=== PATIENT | female | born 1955 | race Hispanic/Latino ===

== ENCOUNTER 2018-03-04 12:50 | Inpatient (IN) | payer OTHER ==
[2018-03-04 13:37] LABS: Absolute Lymphocytes (CBC) 3.7 K/uL (0.7-4.9); Absolute Neutrophil 4.5 K/uL (1.8-8.0); Basophils % 0.4 % (0-1.3); Eosinophils % 2.7 % (0-4.4); Hematocrit 37.1 % (36.0-45.0); MCH 29.2 pg (27.0-35.0); MCV 87.2 fL (80-100); MPV 9.5 fL (7.6-11.3); Monocytes % 10.2 % (3.3-12.3); RBC Red Blood Cell Count 4.25 M/uL (3.86-4.86)
[2018-03-04] MEDS ORDERED: MAGNE/ALUM HYDROXD 30 ML UCUP ONE (13:40)
[2018-03-04] MEDS ORDERED: ASPIRIN 81 MG CHEWABLE TABLET ONE (13:40)
[2018-03-04] MEDS ORDERED: PANTOPRAZOLE 40 MG INJ ONE (13:40)
[2018-03-04] MEDS ORDERED: NITROGLYCERIN 0.4 MG/TAB SL ONE (13:41)
[2018-03-04] MEDS ORDERED: LIDOCAINE VISCOUS 2% SOLN 15 ML UDC ONE (13:41)
[2018-03-04 13:42] LABS: Protime INR 0.93
[2018-03-04 13:42] LABS: Urine Blood 2+ (NEG); Urine Glucose NEGATIVE (NEG); Urine Protein NEGATIVE (NEG); Urine pH 5.5 (5.0-7.0)
--- NOTE | 2018-03-04 13:54 | RAD REPORT ---
EXAM DESCRIPTION: RAD - Chest Single View - 03/04/2018 1:49 pm CLINICAL HISTORY: CHEST PAIN Chest pain. COMPARISON: No comparisons FINDINGS: Portable technique limits examination quality. The lungs are grossly clear. The heart is normal in size. No displaced fractures.Mild dextroscoliosis of the thoracic spine. IMPRESSION: No acute intrathoracic process suspected.
[2018-03-04 13:55] LABS: ALT/SGPT 24 U/L (12-78); AST/SGOT 25 U/L (15-37); Albumin 4.2 g/dL (3.4-5.0); Alkaline Phosphatase 70 U/L (45-117); BUN Blood Urea Nitrogen 29 mg/dL (7-18); Bicarbonate 27 mmol/L (21-32); Bilirubin Direct < 0.1 mg/dL (0-0.2); Bilirubin Total 0.3 mg/dL (0.2-1.0); Glucose Level 147 mg/dL (74-106); Lipase 175 U/L (73-393); Magnesium 2.5 mg/dL (1.8-2.4); NT PRO-BNP 203 pg/mL (<125); Protein, Total 7.8 g/dL (6.4-8.2); Sodium Level 142 mmol/L (136-145); Troponin (Emerg Dept Use Only) < 0.02 ng/mL (0.0-0.045)
--- NOTE | 2018-03-04 14:29 | EDPHYS ---
Physician Documentation [facility] Name: Riana Mcdowell Age: 62 yrs Sex: Female : 1955 Arrival Date: 03/04/2018 Time: 12:52 Bed 26 Private MD: ED Physician Ricardo Hayden HPI: 03/04 13:16 This 62 yrs old Female presents to ER via Ambulatory with complaints of Chest cp Pain. 13:16 The patient or guardian reports chest pain that is located primarily in the anterior cp chest wall. 13:16 Onset: 1 hour(s) ago. The pain does not radiate. Associated signs and symptoms: cp Pertinent negatives: abdominal pain, cough, diaphoresis, dizziness, lower extremity pain, lower extremity swelling, palpitations, shortness of breath, syncope. The chest pain is described as burning. Duration: The patient or guardian reports a single episode, that is still ongoing, but improving. Historical: - Allergies: 13:15 No Known Allergies; tl3 - Home Meds: 13:15 Simvastatin Oral once daily for Hyperlipidemia [Active]; Metoprolol Tartrate Oral for tl3 Hypertension [Active]; - PMHx: 13:15 Myocardial infarction; Hyperlipidemia; tl3 - Immunization history:: Adult Immunizations up to date. - Social history:: Smoking status: Patient/guardian denies using tobacco, never smoked. - Ebola Screening: : No symptoms or risks identified at this time. ROS: 13:19 Constitutional: Negative for body aches, chills, fever, poor PO intake. cp 13:19 Eyes: Negative for injury, pain, redness, and discharge. cp 13:19 ENT: Negative for drainage from ear(s), ear pain, sore throat, difficulty swallowing, difficulty handling secretions. 13:19 Cardiovascular: Positive for chest pain, Negative for edema, palpitations. 13:19 Respiratory: Negative for cough, shortness of breath, wheezing. 13:19 Abdomen/GI: Negative for abdominal pain, vomiting, diarrhea, constipation. 13:19 Back: Negative for pain at rest, pain with movement, radiated pain. 13:19 : Negative for urinary symptoms, flank pain. 13:19 Skin: Negative for cellulitis, rash. 13:19 Neuro: Negative for altered mental status, dizziness, headache, syncope, near syncope, weakness. 13:19 All other systems are negative. Exam: 13:20 ECG was reviewed by the Attending Physician. cp 13:25 Constitutional: The patient appears in no acute distress, alert, awake, cp non-diaphoretic, non-toxic, well developed, well nourished. 13:25 Head/Face: Normocephalic, atraumatic. Eyes: Pupils equal round and reactive to light, cp extra-ocular motions intact. Lids and lashes normal. Conjunctiva and sclera are non-icteric and not injected. Cornea within normal limits. Periorbital areas with no swelling, redness, or edema. ENT: Nares patent. No nasal discharge, no septal abnormalities noted. Tympanic membranes are normal and external auditory canals are clear. Oropharynx with no redness, swelling, or masses, exudates, or evidence of obstruction, uvula midline. Mucous membranes moist. Neck: Trachea midline, no thyromegaly or masses palpated, and no cervical lymphadenopathy. Supple, full range of motion without nuchal rigidity, or vertebral point tenderness. No Meningismus. Chest/axilla: Normal chest wall appearance and motion. Nontender with no deformity. No lesions are appreciated. Cardiovascular: Regular rate and rhythm with a normal S1 and S2. No gallops, murmurs, or rubs. Normal PMI, no JVD. No pulse deficits. Respiratory: Lungs have equal breath sounds bilaterally, clear to auscultation and percussion. No rales, rhonchi or wheezes noted. No increased work of breathing, no retractions or nasal flaring. Abdomen/GI: Soft, non-tender, with normal bowel sounds. No distension or tympany. No guarding or rebound. No evidence of tenderness throughout. Back: No spinal tenderness. No costovertebral tenderness. Full range of motion. Skin: Warm, dry with normal turgor. Normal color with no rashes, no lesions, and no evidence of cellulitis. MS/ Extremity: Pulses equal, no cyanosis. Neurovascular intact. Full, normal range of motion. 13:25 Neuro: Orientation: to person, place \T\ time. Mentation: is normal, Cerebellar function: is grossly normal, Motor: moves all fours, strength is normal, Sensation: no obvious gross deficits. Vital Signs: 13:25 BP 135 / 61; Pulse 60; Resp 18; Temp 98.6(O); Pulse Ox 100% on R/A; tl3 18:57 BP 124 / 54; Pulse 65; Resp 16; Pulse Ox 100% on R/A; rv MDM: 13:07 Patient medically screened. cp 14:23 Data reviewed: vital signs, nurses notes, lab test result(s), EKG, radiologic studies, cp plain films, and as a result, I will admit patient. Test interpretation: by ED physician or midlevel provider: ECG, plain radiologic studies. Physician consultation: Marie Rivera MD was called at 14:20, was contacted at 14:20, regarding admission, to the telemetry unit. patient's condition. 03/04 13:21 Order name: Basic Metabolic Panel; Complete Time: 14:08 03/04 14:08 Interpretation: Normal except: K 3.0; CL 108; GLUC 147; BUN 29; GFR 56; CA 8.4. 03/04 13:21 Order name: CBC with Diff; Complete Time: 14:08 cp 03/04 13:21 Order name: LFT's; Complete Time: 14:08 cp 03/04 13:21 Order name: Magnesium; Complete Time: 14:08 cp 03/04 13:21 Order name: NT PRO-BNP; Complete Time: 14:08 cp 03/04 13:21 Order name: PT-INR; Complete Time: 14:08 cp 03/04 13:21 Order name: Troponin (emerg Dept Use Only); Complete Time: 14:08 cp 03/04 13:21 Order name: XRAY Chest (1 view); Complete Time: 14:08 cp 03/04 13:21 Order name: Lipase; Complete Time: 14:08 cp 03/04 13:29 Order name: Urine Dipstick--Ancillary (enter results); Complete Time: 14:08 eb 03/04 13:21 Order name: EKG; Complete Time: 13:22 cp 03/04 13:21 Order name: Cardiac monitoring; Complete Time: 13:28 cp 03/04 13:21 Order name: EKG - Nurse/Tech; Complete Time: 13:28 cp 03/04 13:21 Order name: IV Saline Lock; Complete Time: 13:28 cp 03/04 13:21 Order name: Labs collected and sent; Complete Time: 13:41 cp 03/04 13:21 Order name: O2 Per Protocol; Complete Time: 13:41 cp 03/04 13:21 Order name: O2 Sat Monitoring; Complete Time: 13:41 cp EC:20 Rate is 58 beats/min. Rhythm is regular. AR interval is normal. QRS interval is normal. cp QT interval is normal. T waves are Inverted in lead V2. Interpreted by me. Reviewed by me. Administered Medications: 13:40 Drug: ProTONIX 40 mg Route: IVP; Infused Over: 2 mins; Site: right antecubital; tl3 16:22 Follow up: Response: No adverse reaction tl3 13:40 Drug: GI Cocktail without - (Maalox Suspension 30 ml, Lidocaine Liquid 2 % 15 tl3 ml) Route: PO; 15:19 Follow up: Response: No adverse reaction tl3 13:40 Drug: Nitroglycerin 0.4 mg Route: Sublingual; tl3 15:19 Follow up: Response: No adverse reaction tl3 15:19 Follow up: Response: No adverse reaction tl3 13:41 Drug: Aspirin Chewable Tablet 324 mg Route: PO; tl3 15:19 Follow up: Response: No adverse reaction tl3 16:21 Drug: Potassium Effervescent Tablet 50 mEq Route: PO; tl3 16:22 Follow up: Response: No adverse reaction tl3 16:22 Drug: Potassium Chloride 20 mEq Route: IV; Rate: calculated rate; Site: right tl3 antecubital; Delivery: Primary tubing; Disposition: 03/05 08:24 Co-signature as Attending Physician, Ricardo Hayden MD I agree with the assessment and griselda plan of care. Disposition: 03/04/18 14:29 Hospitalization ordered by Marie Rivera for Observation. Preliminary diagnosis is Chest pain, unspecified. - Bed requested for Telemetry/MedSurg (observation). - Status is Observation. rv - Condition is Stable. - Problem is new. - Symptoms have improved. UTI on Admission? No Signatures: Dispatcher [employer] Savita Cardenas RN RN dw Anderson, Corey, MD MD cha Williams, Irene, RN RN iw Page, Corey, PA PA cp Lowrey, Tammy, RN RN tl3 Chris Zelaya RN RN rv Corrections: (The following items were deleted from the chart) 03/04 14:08 14:08 Normal except: K 3.0; CL 108; GLUC 147; BUN 29; GFR 56. cp cp 15:50 03/03 13:19 Constitutional: Negative for body aches, chills, fever, poor PO intake, cp cp 03/04 15:50 03/03 13:19 Eyes: Negative for injury, pain, redness, and discharge, cp cp 03/04 15:50 03/03 13:19 ENT: Negative for drainage from ear(s), ear pain, sore throat, difficulty cp swallowing, difficulty handling secretions, cp 03/04 15:50 03/03 13:19 Cardiovascular: Positive for chest pain, Negative for edema, palpitations, cp cp 03/04 15:50 03/03 13:19 Respiratory: Negative for cough, shortness of breath, wheezing, cp cp 03/04 15:50 03/03 13:19 Abdomen/GI: Negative for abdominal pain, vomiting, diarrhea, constipation, cp black/tarry stool, rectal bleeding, cp 03/04 15:50 03/03 13:19 Back: Negative for pain at rest, pain with movement, cp cp 03/04 15:50 03/03 13:19 : Negative for urinary symptoms, flank pain, cp cp 03/04 15:50 03/03 13:19 Skin: Negative for cellulitis, rash, cp cp 03/04 15:50 03/03 13:19 Neuro: Negative for altered mental status, headache, numbness, syncope, cp near syncope, weakness, cp 03/04 15:50 03/03 13:19 All other systems are negative, cp cp 03/04 16:49 14:29 Hospitalization Ordered by Marie Rivera MD for Observation. Preliminary diagnosis iw is Chest pain, unspecified. Bed requested for Telemetry/MedSurg (observation). Status is Observation. Condition is Stable. Problem is new. Symptoms have improved. UTI on Admission? No. cp 17:28 16:49 03/04/2018 14:29 Hospitalization Ordered by Marie Rivera MD for Observation. dw Preliminary diagnosis is Chest pain, unspecified. Bed requested for [email or web address] ER HOLD. Status is Observation. Condition is Stable. Problem is new. Symptoms have improved. UTI on Admission? No. iw 17:28 17:28 03/04/2018 14:29 Hospitalization Ordered by Marie Rivera MD for Observation. dw Preliminary diagnosis is Chest pain, unspecified. Bed requested for Telemetry/MedSurg (observation). Status is Observation. Condition is Stable. Problem is new. Symptoms have improved. UTI on Admission? No. dw 18:58 17:28 03/04/2018 14:29 Hospitalization Ordered by Marie Rivera MD for Observation. rv Preliminary diagnosis is Chest pain, unspecified. Bed requested for Telemetry/MedSurg (observation). Status is Observation. Condition is Stable. Problem is new. Symptoms have improved. UTI on Admission? No. dw
--- NOTE | 2018-03-04 14:29 | ER ---
Nurse's Notes [facility] Name: Riana Mcdowell Age: 62 yrs Sex: Female : 1955 Arrival Date: 03/04/2018 Time: 12:52 Bed 26 Private MD: Diagnosis: Chest pain, unspecified Presentation: 03/04 13:11 Presenting complaint: Patient states: pt reports chest pain that spreads across chest tl3 and burning into left arm, pain started after getting into an argument with her brother about an hour and a half ago. At that time pain was at 10/10 but now is 7/10. Transition of care: patient was not received from another setting of care. Onset of symptoms was March 04, 2018 at 11:30. Risk Assessment: Do you want to hurt yourself or someone else? Patient reports no desire to harm self or others. Initial Sepsis Screen: Does the patient meet any 2 criteria? No. Patient's initial sepsis screen is negative. Does the patient have a suspected source of infection? No. Patient's initial sepsis screen is negative. Care prior to arrival: None. 13:11 Method Of Arrival: Ambulatory tl3 13:11 Acuity: MAGALIS 3 tl3 Triage Assessment: 13:15 General: Appears uncomfortable, well groomed, well developed, well nourished, Behavior tl3 is calm, cooperative, appropriate for age. Pain: Complains of pain in chest, left arm. EENT: No signs and/or symptoms were reported regarding the EENT system. Neuro: Cardiovascular: Reports chest pain, shortness of breath, since 1130 am Patient's skin is warm and dry. Rhythm is regular. Respiratory: Airway is patent Respiratory effort is even, unlabored, Respiratory pattern is regular, symmetrical. GI: No signs and/or symptoms were reported involving the gastrointestinal system. : No signs and/or symptoms were reported regarding the genitourinary system. Derm: No signs and/or symptoms reported regarding the dermatologic system. Musculoskeletal: No signs and/or symptoms reported regarding the musculoskeletal system. Historical: - Allergies: 13:15 No Known Allergies; tl3 - Home Meds: 13:15 Simvastatin Oral once daily for Hyperlipidemia [Active]; Metoprolol Tartrate Oral for tl3 Hypertension [Active]; - PMHx: 13:15 Myocardial infarction; Hyperlipidemia; tl3 - Immunization history:: Adult Immunizations up to date. - Social history:: Smoking status: Patient/guardian denies using tobacco, never smoked. - Ebola Screening: : No symptoms or risks identified at this time. Screenin:26 Abuse screen: Denies threats or abuse. Nutritional screening: No deficits noted. tl3 Tuberculosis screening: No symptoms or risk factors identified. Fall Risk None identified. Assessment: 13:26 Reassessment: No changes from previously documented assessment. tl3 Vital Signs: 13:25 BP 135 / 61; Pulse 60; Resp 18; Temp 98.6(O); Pulse Ox 100% on R/A; tl3 18:57 BP 124 / 54; Pulse 65; Resp 16; Pulse Ox 100% on R/A; rv ED Course: 12:52 Patient arrived in ED. mr 13:07 Ricardo Abraham PA is PHCP. cp 13:07 Ricardo Hayden MD is Attending Physician. cp 13:11 Jackelyn Pastor, VIVIANA is Primary Nurse. tl3 13:13 Triage completed. tl3 13:25 Arm band placed on left wrist. tl3 13:26 Patient has correct armband on for positive identification. gambling monitor on. Pulse tl3 ox on. NIBP on. Warm blanket given. 13:26 No provider procedures requiring assistance completed. Initial lab(s) drawn, by ED tl3 staff, sent to lab. EKG done. Inserted saline lock: 20 gauge in right antecubital area, using aseptic technique. Blood collected. Patient maintains SpO2 saturation greater than 95% on room air. 13:49 XRAY Chest (1 view) In Process Unspecified. EDMS 14:27 Marie Rivera MD is Hospitalizing Provider. cp Administered Medications: 13:40 Drug: ProTONIX 40 mg Route: IVP; Infused Over: 2 mins; Site: right antecubital; tl3 16:22 Follow up: Response: No adverse reaction tl3 13:40 Drug: GI Cocktail without - (Maalox Suspension 30 ml, Lidocaine Liquid 2 % 15 tl3 ml) Route: PO; 15:19 Follow up: Response: No adverse reaction tl3 13:40 Drug: Nitroglycerin 0.4 mg Route: Sublingual; tl3 15:19 Follow up: Response: No adverse reaction tl3 15:19 Follow up: Response: No adverse reaction tl3 13:41 Drug: Aspirin Chewable Tablet 324 mg Route: PO; tl3 15:19 Follow up: Response: No adverse reaction tl3 16:21 Drug: Potassium Effervescent Tablet 50 mEq Route: PO; tl3 16:22 Follow up: Response: No adverse reaction tl3 16:22 Drug: Potassium Chloride 20 mEq Route: IV; Rate: calculated rate; Site: right tl3 antecubital; Delivery: Primary tubing; Outcome: 14:29 Decision to Hospitalize by Provider. cp 18:57 Admitted to Tele accompanied by tech, via wheelchair, room 422, with chart. rv 18:57 Condition: good 18:58 Patient left the ED. rv Signatures: Dispatcher [employer] EDMS Samira Herron Corey, PA PA cp Lowrey, Tammy, RN RN tl3 Chris Zelaya RN RN rv
[2018-03-04] MEDS ORDERED: KCL 20 MEQ/100 mL IVPB 20 MEQ/100 ML BAG IV ONE (16:14)
[2018-03-04] MEDS ORDERED: NA CHLORIDE 0.9% 1,000 ML ONE (16:14)
[2018-03-04] MEDS ORDERED: POTASSIUM 25 MEQ EFFERV TAB ONE (16:14)
[2018-03-04] MEDS ORDERED: MORPHINE 2 MG/ML SYR IV PRN (16:44)
[2018-03-04] MEDS ORDERED: NITROGLYCERIN 0.4 MG/TAB SL PRN (16:44)
[2018-03-04] MEDS ORDERED: ONDANSETRON 4 MG/2 ML VIAL IV PRN (16:44)
[2018-03-04] MEDS ORDERED: ACETAMINOPHEN 500 MG TAB PO PRN (16:44)
[2018-03-04] MEDS ORDERED: POTASSIUM 25 MEQ EFFERV TAB PO ONE (16:46)
[2018-03-04] MEDS ORDERED: ENOXAPARIN 60 MG/0.6 ML SQ ONE (17:20)
[2018-03-04] MEDS ORDERED: ENOXAPARIN 40 MG/0.4 ML SQ ONE (17:24)
[2018-03-04] MEDS ORDERED: ENOXAPARIN 40 MG/0.4 ML SQ SCH (18:00)
[2018-03-04] MEDS ORDERED: INFLUENZA VACCINE (for 3y+) 0.5 ML DOSE IMVAC ONE (18:00)
--- NOTE | 2018-03-04 18:30 | P.HP ---
Certification for Inpatient Patient admitted to: Inpatient With expected LOS: >2 Midnights Practitioner: I am a practitioner with admitting privileges, knowledge of patient current condition, hospital course, and medical plan of care. Services: Services provided to patient in accordance with Admission requirements found in Title 42 Section 412.3 of the Code of Federal Regulations Patient History Date of Service: 03/05/18 History of Present Illness: This is a 62-year-old female with past medical history hypertension, hyperlipidemia admitted for chest pain. Chest pain started around noon on the day of admission, it was intermittent, located on the left side. She described it as a pressor like/burning type of pain along with a heavy on. She states that she had a similar episode once back in 2011, left heart cath was done at that time that required no stent placement. At the time of my exam, she was hemodynamically stable, pain had resolved and she was alert and oriented x3. Allergies No Known Allergies Allergy (Verified 03/04/18 16:26) Home Medications: Metoprolol Tartrate 25 mg PO DAILY 03/04/18 Simvastatin 20 mg PO DAILY 03/04/18 - Past Medical/Surgical History Has patient received pneumonia vaccine in the past: No Diabetic: No -: MS -: Hyperlipidemia -: Hypertension -: Tubal Ligation - Social History Smoking Status: Never smoker Alcohol use: No CD- Drugs: No Caffeine use: No Place of Residence: Home Review of Systems General: Unremarkable Eyes: Unremarkable ENT: Unremarkable Respiratory: Unremarkable Cardiovascular: Chest Pain, As per HPI Gastrointestinal: Unremarkable Musculoskeletal: As per HPI Integumentary: Unremarkable Neurological: Unremarkable Physical Examination - Physical Exam General: Alert, In no apparent distress, Oriented x3 HEENT: Atraumatic, PERRLA, Mucous membr. moist/pink, EOMI, Sclerae nonicteric Neck: Supple, 2+ carotid pulse no bruit, No LAD, Without JVD or thyroid abnormality Respiratory: Clear to auscultation bilaterally, Normal air movement Cardiovascular: Regular rate/rhythm, Normal S1 S2 Gastrointestinal: Normal bowel sounds, No tenderness Musculoskeletal: No tenderness Integumentary: No rashes Neurological: Normal gait, Normal speech, Normal strength at 5/5 x4 extr, Normal tone, Normal affect Lymphatics: No axilla or inguinal lymphadenopathy - Studies Laboratory Data (last 24 hrs) 03/04/18 13:25: PT 11.0, INR 0.93 03/04/18 13:25: WBC 9.4, Hgb 12.4, Hct 37.1, Plt Count 277 03/04/18 13:25: Sodium 142, Potassium 3.0 L, BUN 29 H, Creatinine 1.00, Glucose 147 H, Magnesium 2.5 H, Total Bilirubin 0.3, AST 25, ALT 24, Alkaline Phosphatase 70, Lipase 175 Assessment and Plan - Plan This is a 62-year-old female with: Chest pain, rule outs acute myocardial infarction. Hypertension Hyperlipidemia 1. Serial troponins Q8 and EKG. Initial troponin negative 2. Cardiology consultation. 3. Anti-platelet therapy, anti coagulation, beta-rock, statin, and O2 as needed 5. IV morphine for pain 6. GI AND DVT prophylaxis - Advance Directives Does patient have a Living Will: No Does patient have a Durable POA for Healthcare: No Physician Review: Patient Assessed, Agree with Above Assessment and Plan Time Spent Managing Pts Care (In Minutes): 45
[2018-03-04] MEDS ORDERED: ATORVASTATIN 40 MG TAB PO SCH (21:00)
[2018-03-04 22:19] LABS: Troponin I 0.76 ng/mL (0.0-0.045)
[2018-03-05 05:08] LABS: Absolute Lymphocytes (CBC) 2.5 K/uL (0.7-4.9); Absolute Monocytes 0.7 K/uL (0.1-1.3); Absolute Neutrophil 2.9 K/uL (1.8-8.0); Basophils % 0.3 % (0-1.3); Eosinophils % 3.3 % (0-4.4); Lymphocytes % 38.8 % (15.3-44.8); MCH 29.5 pg (27.0-35.0); MCV 87.4 fL (80-100); MPV 9.2 fL (7.6-11.3); Monocytes % 11.8 % (3.3-12.3); RBC Red Blood Cell Count 3.77 M/uL (3.86-4.86)
[2018-03-05 05:40] LABS: ALT/SGPT 20 U/L (12-78); AST/SGOT 22 U/L (15-37); Albumin 3.3 g/dL (3.4-5.0); Alkaline Phosphatase 54 U/L (45-117); BUN Blood Urea Nitrogen 21 mg/dL (7-18); Bicarbonate 28 mmol/L (21-32); Bilirubin Total 0.4 mg/dL (0.2-1.0); Glucose Level 95 mg/dL (74-106); HDL Cholesterol 48 mg/dL (40-60); LDL Cholesterol, Calculated 39 (<130); Potassium 4.4 mmol/L (3.5-5.1); Protein, Total 6.2 g/dL (6.4-8.2); Sodium Level 146 mmol/L (136-145)
[2018-03-05 05:41] LABS: Troponin I 0.92 ng/mL (0.0-0.045)
[2018-03-05] MEDS ORDERED: ENOXAPARIN 80 MG/0.8 ML SQ ONE (06:13)
--- NOTE | 2018-03-05 07:36 | EKG ---
Test Date: 2018-03-04 Test Time: 14:32:08 Ticket Attendant: JEREMIAH MEASUREMENT RESULTS: Intervals: Rate: 68 DC: 154 QRSD: 80 QT: 404 QTc: 429 [place]: P: 37 DC: 154 QRS: 0 T: 44 INTERPRETIVE STATEMENTS: Normal sinus rhythm Normal ECG Compared to ECG 03/04/2018 13:11:34 Sinus bradycardia no longer present ST (T wave) deviation no longer present Electronically Signed On 03-05-18 07:35:34 DIRECTOR CENTER by Babar Christie
--- NOTE | 2018-03-05 07:37 | EKG ---
Test Date: 2018-03-04 Test Time: 13:11:34 [employer]ment [employer] Lacquer Mixer: JEREMIAH MEASUREMENT RESULTS: Intervals: Rate: 58 GA: 174 QRSD: 90 QT: 442 QTc: 433 [place]: P: 38 GA: 174 QRS: 10 T: 46 INTERPRETIVE STATEMENTS: Sinus bradycardia Otherwise normal ECG No previous ECG available for comparison Electronically Signed On 03-05-18 07:36:42 DELIVERY REPRESENTATIVE by Babar Christie
[2018-03-05] MEDS: METOPROLOL TAR 25 MG TAB PO SCH (09:35)
[2018-03-05] MEDS: NACHLORIDE 0.45% 1,000 ML IV SCH ×2 (09:37→21:06)
--- NOTE | 2018-03-05 09:48 | P.PN ---
Date of Service: 03/05/18 Called re: elevated troponin; had chest pain on arrival. But the chest pain is resolved. Will go ahead and anticoagulate patient. Consult Cardiology. Echocardiogram. Spoke with family regarding condition. Spoke with them at length. No antiplatelet therapy or anticoagulation. Will order testing as above.
[2018-03-05] MEDS ORDERED: REGADENOSON 0.4 MG/5 ML SYR IV ONE (09:55)
--- NOTE | 2018-03-05 13:18 | CON ---
CARDIOLOGY CONSULT History Of Present Illness: Mrs. Mcdowell is 62. She came to the hospital because of chest pain. T he chest pain was in central chest. There was nausea, vomiting, sweating, aching in the shoulders an d arms, lasted about 30 minutes, resolved by the time she got to the emergency room. Her initial tro ponin in the emergency room was 0.02. Subsequent troponins are elevated well out of the normal range . The patient's electrocardiogram shows sinus bradycardia, otherwise it is normal. The patient has never had myocardial infarction. In 2001, she had a stroke. There was no revascularization. Since 2001 she has taken simvastatin, metoprolol, and aspirin. She has never used tobacco. No illegal deven gs, rare alcohol. Physical Examination: General: She appears to be her stated age. Vital Signs: She is 5 feet 4 inches, 156 pounds. Blood pressure 122/54, pulse 53. HEENT: Normal. Lungs: Clear. Carotids: No bruit. Heart: Within normal limits. Abdomen: Soft. Extremities: Normal. Impression: Mrs. Mcdowell needs to have a cardiac cath. She received Lovenox at 6 a.m. this morning , so I do not want to do an elective cardiac cath with a full-dose Lovenox on board. We have the cho ice of either doing it very late this afternoon or tomorrow morning since she is not having chest pain. It will be rescheduled for tomorrow with Dr. Quintanilla. SHAZIA/GEOVANNY Voice ID: [id number] Report ID: [id number]
--- NOTE | 2018-03-05 18:38 | P.PN ---
Subjective Date of Service: 03/05/18 Subjective: No new changes, No C/O voiced Patient seen and examined at bedside. No family at bedside. Case discussed with nursing staff. Denies any chest pain at this time. Denies any nausea, vomiting, excessive sweating, arm pain, dizziness, headache or lightheadedness. Review of Systems As noted Physical Examination - Vital Signs Temperature: 98.2 F Blood Pressure: 112/56 Pulse: 59 Respirations: 16 Pulse Ox (%): 97 - Physical Exam General: Alert, In no apparent distress, Oriented x3 HEENT: Atraumatic, PERRLA, EOMI Neck: Supple, JVD not distended Respiratory: Clear to auscultation bilaterally, Normal air movement Cardiovascular: Regular rate/rhythm, Normal S1 S2 Gastrointestinal: Normal bowel sounds, No tenderness Musculoskeletal: No tenderness Integumentary: No rashes Neurological: Normal speech, Normal tone, Normal affect Lymphatics: No axilla or inguinal lymphadenopathy - Studies Laboratory Data (last 24 hrs) 03/05/18 04:32: Sodium 146 H, Potassium 4.4, BUN 21 H, Creatinine 0.60, Glucose 95, Total Bilirubin 0.4, AST 22, ALT 20, Alkaline Phosphatase 54, Troponin I 0.92 H*, Triglycerides 65, Cholesterol 100, HDL Cholesterol 48, Cholesterol/HDL Ratio 2.08 03/05/18 04:32: WBC 6.4 D, Hgb 11.1 L, Hct 33.0 L, Plt Count 213 D 03/04/18 21:06: Potassium 4.0, Troponin I 0.76 H* Assessment And Plan - Plan This is a 62-year-old female with: Chest pain, rule outs acute myocardial infarction. Hypertension Hyperlipidemia 1. Serial troponins Q8 and EKG. Initial troponin negative, with elevation in serial troponins. 2. Cardiology consultation. Recommendations appreciated. She is pending a heart catheterization tomorrow along with an echo. 3. Anti-platelet therapy, anti coagulation, beta-rock, statin, and O2 as needed 5. IV morphine for pain 6. GI AND DVT prophylaxis Disposition: Pending an echo and heart catheterization with Cardiology tomorrow Physician Review: Patient Assessed, Agree with Above Assessment and Plan
[2018-03-05] MEDS: ATORVASTATIN 10 MG TAB PO SCH (21:04)
[2018-03-06] MEDS: METOPROLOL TAR 25 MG TAB PO SCH (05:30)
[2018-03-06] MEDS: ASPIRIN EC 81 MG TAB PO SCH (05:31)
[2018-03-06 05:59] LABS: Absolute Lymphocytes (CBC) 2.8 K/uL (0.7-4.9); Absolute Monocytes 0.7 K/uL (0.1-1.3); Absolute Neutrophil 3.1 K/uL (1.8-8.0); Basophils % 0.5 % (0-1.3); Eosinophils % 2.6 % (0-4.4); MCH 29.3 pg (27.0-35.0); MCV 86.6 fL (80-100); MPV 9.4 fL (7.6-11.3); Monocytes % 10.2 % (3.3-12.3); RBC Red Blood Cell Count 4.28 M/uL (3.86-4.86)
[2018-03-06 06:09] LABS: Albumin 3.7 g/dL (3.4-5.0); Bilirubin Total 0.4 mg/dL (0.2-1.0); Potassium 3.6 mmol/L (3.5-5.1); Protein, Total 7.1 g/dL (6.4-8.2)
[2018-03-06] MEDS ORDERED: KCL 20 MEQ/100 mL IVPB 20 MEQ/100 ML BAG IV SCH (07:00)
[2018-03-06] MEDS: NACHLORIDE 0.45% 1,000 ML IV SCH (11:13)
--- NOTE | 2018-03-06 12:28 | ECHO ---
HEIGHT: 5 ft 4 in WEIGHT: 156 lb 0 oz DATE OF STUDY: 03/06/[address]: Arcadio Padilla MD 2-DIMENSIONAL: YES M.MODE: YES DOPPLER: YES COLOR FLOW: YES TDS: NO PORTABLE: NO DEFINITY: NO BUBBLE STUDY: NO DIAGNOSIS: ELEVATED TROPONIN CARDIAC HISTORY: CATHERIZATION: NO SURGERY: NO PROSTHETIC VALVE: NO PACEMAKER: NO MEASUREMENTS (cm) DIASTOLIC (NORMALS) SYSTOLIC (NORMALS) IVSd 1.1 (0.6-1.2) LA Diam 4.1 (1.9-4.0) LVEF 64% LVIDd 3.3 (3.5-5.7) LVIDs 2.2 (2.0-3.5) %FS 34% LVPWd 1.2 (0.6-1.2) Ao Diam 2.5 (2.0-3.7) 2 DIMENSIONAL ASSESSMENT: RIGHT ATRIUM: NORMAL LEFT ATRIUM: DILATED RIGHT VENTRICLE: NORMAL LEFT VENTRICLE: NORMAL TRICUSPID VALVE: NORMAL MITRAL VALVE: NORMAL PULMONIC VALVE: NORMAL AORTIC VALVE: NORMAL PERICARDIAL EFFUSION: NONE AORTIC ROOT: NORMAL LEFT VENTRICULAR WALL MOTION: NORMAL DOPPLER/COLOR FLOW: MILD AORTIC AND TRICUPSID REGURGITATION. COMMENTS: NORMAL LEFT VENTRICULAR SIZE AND FUNCTION. MILD AORTIC AND TRICUPSID REGURGITATION. NO WALL MOTION ABNORMALITY. TECHNOLOGIST: Higinio WALTERS
[2018-03-06] MEDS ORDERED: NA CHLORIDE 0.9% 500 ML ONE (12:44)
[2018-03-06] MEDS ORDERED: ATROPINE SULF 1 MG/10 ML SYR IV ONE (12:45)
[2018-03-06] MEDS ORDERED: MIDAZOLAM HCL 2 MG/2 ML INJ ONE (12:45)
[2018-03-06] MEDS ORDERED: LIDOCAINE 1% MPF 30 ML VIAL ONE (12:45)
[2018-03-06] MEDS ORDERED: NA CHLORIDE 0.9% 0 ML ONE (12:45)
[2018-03-06] MEDS ORDERED: FENTANYL CITR 100 MCG/2 ML ONE (12:45)
[2018-03-06] MEDS ORDERED: ACETAMINOPHEN 325 MG TABLET PO PRN (15:29)
[2018-03-06] MEDS ORDERED: NA CHLORIDE 0.9% 1,000 ML IV SCH (16:00)
[2018-03-06] MEDS ORDERED: ENOXAPARIN 40 MG/0.4 ML SQ SCH (18:00)
[2018-03-06] MEDS: ATORVASTATIN 10 MG TAB PO SCH (20:49)
--- NOTE | 2018-03-06 23:43 | PN ---
Date of Progress Note: 03/06/2018 Subjective: Patient is seen and examined. Chart reviewed and case discussed with RN. The patient is going for a heart catheterization today. Review of Systems: Negative except as above. Medications: List reviewed. Physical Examination: Vital Signs: Temperature 97.7, heart rate 54, blood pressure 112/43, respirations 18, O2 96% on room air. General: Awake, alert, oriented x3. No acute distress. Elderly female. CV: S1, S2. Regular rate and rhythm. No murmurs. Peripheral pulses present. Respiratory: Moving air well bilaterally. No wheezing or stridor. Gastrointestinal: Abdomen is soft, nontender, nondistended. Positive bowel sounds. Extremities: No clubbing, cyanosis, or edema. Neuro: Nonfocal. Skin: No rashes. Normal skin turgor. Psych: Mood is okay. Affect is full. Insight and judgment are good. Laboratory Data: Sodium 141, potassium 3.6, chloride 107, CO2 28, BUN 16, creatinine 0.8, glucose 102, calcium 8.2. Troponin 0.76, 0.92. WBC 6.7, H and H 12.5 and 37, platelets 257, with neutrophils 45%. Echocardiogram shows EF 64% , mild aortic and tricuspid regurgitation, no wall motion abnormality. Assessment And Plan: A 62-year-old female with, 1. NSTEMI. The patient has elevated cardiac enzymes. The patient is on chest pain guidelines and Lovenox therapeutic dose. Appreciate Cardiology input. The patient will have the cardiac catheterization today. 2. Essential hypertension, stable. Resume home medications as appropriate. 3. Mixed hyperlipidemia. We will continue statin. 4. Gastrointestinal and deep vein thrombosis prophylaxis addressed. 5. Hypernatremia, corrected. We will continue to monitor sodium level. Plan: Follow up with the cardiology recommendations. Likely discharge in the next 24 to 48 hours. /GEOVANNY Voice ID: [id number] Report ID: [id number] [facility]
[2018-03-07] MEDS: NACHLORIDE 0.45% 1,000 ML IV SCH (00:21)
--- NOTE | 2018-03-07 04:35 | OP ---
Surgeon: Horace Quintanilla MD Metallurgical Lab Technician: Ajay Rao. The patient was admitted to Dr. Rivera's service on 03/05/2018 with non-ST elevation myocardial infarc tion. She was seen by Dr. Christie on 03/05/2018. Today, she was scheduled for a heart catheterizatio n as an inpatient. Procedure: Left heart catheterization. Indication: Elevated troponin, non-ST elevation WI. Description Of Procedure: The patient was brought to the [facility], prepped and draped in the routine sterile fashion, given 2 mg of Versed for IV sedation. Right common femoral artery cannulated with a 6-Brazilian sheath. Angiography there was normal. Angio-Seal was used to close the case. Diagnostic catheter 6-Brazilian left and right King were used to do the coronary angiography. She was found to have a normal coronary arteries, normal left main, normal LAD, normal circumflex and normal right co ronary artery without any plaque buildup. Left ventriculogram was normal. She had a normal EDP and normal wall motion. Her ejection fraction was 65 to 70%. Complications: None. Blood Loss: 5 cc. Final Diagnoses: Normal heart catheterization, abnormal troponin. Total conscious sedation was 30 minutes. Plan: The plan is to continue medical therapy. Transit Bus Operator: Aris Jeronimo Voice ID: [id number] Report ID: [id number]
[2018-03-07 04:40] LABS: Urine Appearance CLEAR; Urine Bilirubin NEGATIVE (NEG); Urine Blood 1+ (NEG); Urine Color YELLOW; Urine Glucose NEGATIVE (NEG); Urine Protein NEGATIVE (NEG); Urine Urobilinogen 0.2 mg/dL (0.2-1.0); Urine pH 5.5 (5.0-7.0)
[2018-03-07 04:44] LABS: Absolute Lymphocytes (CBC) 2.3 K/uL (0.7-4.9); Absolute Monocytes 0.9 K/uL (0.1-1.3); Absolute Neutrophil 3.1 K/uL (1.8-8.0); Basophils % 0.4 % (0-1.3); Eosinophils % 3.7 % (0-4.4); Hematocrit 34.7 % (36.0-45.0); Lymphocytes % 35.1 % (15.3-44.8); MCH 29.5 pg (27.0-35.0); MCV 86.9 fL (80-100); MPV 9.8 fL (7.6-11.3); Monocytes % 13.2 % (3.3-12.3); RBC Red Blood Cell Count 3.99 M/uL (3.86-4.86)
[2018-03-07 04:58] LABS: Urine Microscopic Reflex ORDER UMIC
[2018-03-07 05:01] LABS: Albumin 3.3 g/dL (3.4-5.0); Bilirubin Total 0.3 mg/dL (0.2-1.0); Magnesium 2.3 mg/dL (1.8-2.4); Phosphorus 2.8 mg/dL (2.5-4.9); Protein, Total 6.3 g/dL (6.4-8.2)
[2018-03-07 05:17] LABS: Urine Bacteria 20-50 /HPF (<20); Urine Culture Reflex Order NOT NEEDED; Urine RBC <5 /HPF (NONE SEEN)
[2018-03-07] MEDS: ASPIRIN EC 81 MG TAB PO SCH (08:16)
[2018-03-07] MEDS: METOPROLOL TAR 25 MG TAB PO SCH (08:16)
--- NOTE | 2018-03-08 12:05 | DS ---
Date of Discharge: 03/07/2018 Consultants: Dr. Christie and Dr. Quintanilla with Cardiology. Procedure: On 03/06/2018, cardiac catheterization, normal heart cath, no stents placed. Admitting Diagnoses: 1. Chest pain, rule out acute coronary syndrome. 2. Essential hypertension. 3. Hyperlipidemia. Discharge Diagnoses: 1. Non-ST segment elevation myocardial infarction, normal heart catheterization. 2. Essential hypertension, stable. 3. Mixed hyperlipidemia, statin. 4. Hypernatremia, corrected. 5. Chronic diastolic heart failure 6. Bifasicular block Hospital Course: The patient is a 62-year-old female with past medical history of hypertension, hyperlipidemia, comes in with chest pain. The patient has had heart cath in the past 2011, which did not require any stent placement. The patient was started on chest pain guidelines. She was seen by Dr. Christie with Cardiology, who recommended heart cath. The patient underwent cardiac catheterization as mentioned above, did not require any stents. The patient's chest x-ray was normal. The patient's chest pain resolved. She is doing well otherwise. Her sodium level, which was mildly elevated, did come back to normal. Troponin level was elevated from 0.76 to 0.92. She was thought to have NSTEMI. The patient was then cleared for discharge. She will be sent home on aspirin along with statin. Her echocardiogram showed EF of 64% with no wall motion abnormality. Medications: As per medication reconciliation list. Follow with primary care physician in 2 to 3 days. Follow up with communications superintendent, Dr. Christie, in 2 weeks. Return to ER for worsening condition. Diet: Heart healthy. Activity: As tolerated. Physical Examination: General: Awake, alert, oriented x3. No acute distress. CV: S1, S2. No murmurs. Respiratory: Moving air well bilaterally. No wheezing. Gastrointestinal: Abdomen is soft, nontender, nondistended. Positive bowel sounds. Extremities: No clubbing, cyanosis, or edema. Skin: Cath site clean, dry, intact. No hematoma. Neuro: Nonfocal. Total time spent discharging the patient was 36 minutes. /GEOVANNY Voice ID: [id number] Report ID: [id number] [facility]
== END 2018-03-07 11:21 | disposition home or self-care (01) | DRG 281 ==
LOC: ER 12:50 → ERHOLD 15:04 → 4TH 18:28 → OBSVTOIN 03-05 08:31
PROVIDERS: ADMIT Family Medicine; ATTEND Family Medicine
PROC: 4A023N7 Measurement of Cardiac Sampling and Pressure, Left Heart, Percutaneous Approach (ICD-10-PCS; principal; 2018-03-06)
PROC: B211YZZ Fluoroscopy of Multiple Coronary Arteries using Other Contrast (ICD-10-PCS; 2018-03-06)
DX: I21.4 Non-ST elevation (NSTEMI) myocardial infarction (principal); E87.0 Hyperosmolality and hypernatremia; I50.32 Chronic diastolic (congestive) heart failure; I45.2 Bifascicular block; I11.0 Hypertensive heart disease with heart failure; E78.2 Mixed hyperlipidemia; Z79.82 Long term (current) use of aspirin; I36.1 Nonrheumatic tricuspid (valve) insufficiency; I35.1 Nonrheumatic aortic (valve) insufficiency
CPT/HCPCS: 36415; 71045; 80048; 80053; 80061; 80076; 81003; 81015; 83690; 83735; 83880; 84100; 84132; 84484; 85025; 85610; 87077; 87086; 87088; 87186; 92960; 93005; 93306; 93458; 94760; 96374; 96375; 99285; C1760; C1893; C9113; J0583; J1650; J2250; J2785; J3010; J7030